=== PATIENT | female | born 1935 | race Caucasian/White ===

== ENCOUNTER 2022-08-23 14:27 | Inpatient (IN) ==
--- NOTE | 2022-08-23 14:55 | Internal Med History&Physical ---
HPI History of Present Illness Patient information: Note initiated : 08/23/22 at 2:54 pm Service Date, if different from initiated Date: [] Patient: Shira Gomez 86 y/o F admitted on for hip fx. Chief Complaint: [] History of present illness: Ms. Gomez is a 86 year old F Presents the ED with left hip pain and [place]. She has history of dementia chronic kidney disease UTIs hypertension diabetes hyperlipidemia. And tobacco abuse. Patient has several falls within the past couple weeks and has noticed increasing pain in the left hip and difficulty weightbearing and walking. Per the daughter she is just lost her balance both times. She is supposed to be ambulating with a walker and her daughter lives with her and is her primary records management manager. Patient worked up in the ED and found to have left hip fracture. Dr. Soliman contacted[facility] Review of Systems: Pertinent positives as above. Denies headache/fever/chills/nausea/vomiting/chest or abdominal pain/cough/dyspnea/diarrhea. Remaining 10 point review of system reviewed negative PHYSICAL EXAM General: Alert, Awake, No acute Distress Eyes/N/T: EOMI, no scleral icterus, PERRL, Head/Neck: neck supple, full ROM, normocephalic atraumatic CV: RRR, No murmurs, normal s1/s2 Pulm: Clear b/l, no wheezing/rhonchi/rales, no respiratory distress Abd: soft, nontender, +BS x4 Ext: no clubbing/cyanosis/edema, nontender Neuro: Alert, CN 2-12 grossly intact, no focal deficits, moves all extremities, , sensations intact b/l upper/lower Psychiatric: Skin: warm/dry, normal color A/P Narrative A/P Narrative: A: *Left hip fracture: *Generalized weakness/deconditioning: *Dementia: *CKD III: *HTN/HLD: *DM 2: *GERD: *Tobacco abuse: P: -Dr. Soliman for orthopedic repair -Pain control - -Monitor renal function and UOP/electrolytes and replace as needed -Continue home ACEI, statin -SSI -Home medication reconciliation -PT/OT -CM for placement -Smoking cessation counseling >3 minutes -ppx: SCD and postop per Ortho /home PPI Time Spent With Patient Time: Total time spent is greater than 50% in coordination of care (as documented) at patient's floor/unit and/or counseling patient: Initial: Total time with patient: 55 - 74 minutes
[2022-08-23] MEDS ORDERED: LABETALOL 5 MG/ML ML IV PRN (15:00)
[2022-08-23] MEDS ORDERED: SENNOSIDES 1 TABLET PO PRN (15:00)
[2022-08-23] MEDS ORDERED: POLYETHYLENE GLYCOL 3350 17 GM PACKET PO PRN (15:00)
[2022-08-23] MEDS ORDERED: HYDROcodone/APAP 5/325MG TABLET PO PRN (15:00)
[2022-08-23] MEDS ORDERED: POTASSIUM CHLORIDE 40 MEQ in DEXTROSE 5% IN WATER 500 ML IV PRN (15:00)
[2022-08-23] MEDS ORDERED: MAGNESIUM SULFATE 2 GM/50 ML BAG IV PRN (15:00)
[2022-08-23] MEDS ORDERED: morphine 4 MG/ML VIAL IV PRN (15:00)
[2022-08-23] MEDS ORDERED: ONDANSETRON 4 MG/2 ML VIAL IV PRN (15:00)
[2022-08-23] MEDS ORDERED: POTASSIUM CHLORIDE 20 MEQ TABLET PO PRN ×2 (15:00)
[2022-08-23] MEDS ORDERED: IPRATROPIUM/ALBUTEROL 3 ML AMPUL.NEB NEB PRN (15:00)
[2022-08-23] MEDS: DOCUSATE SODIUM 100 MG CAPSULE PO SCH (20:25)
[2022-08-23] MEDS: DULoxetine 30 MG CAPSULE PO SCH (21:09)
[2022-08-23] MEDS: ATORVASTATIN 10 MG TABLET PO SCH (21:09)
[2022-08-23] MEDS: 0.9 % SODIUM CHLORIDE 10 ML SYRINGE IV SCH (21:09)
[2022-08-24] MEDS: 0.9 % SODIUM CHLORIDE 10 ML SYRINGE IV SCH ×3 (04:02→22:14)
[2022-08-24 06:47] LABS: Basophils # (Auto) 0.08 K/mcL (0.00-0.30); Basophils % (Auto) 1.1 % (0.0-2.0); Eosinophils # (Auto) 0.22 K/mcL (0.00-0.70); Eosinophils % (Auto) 3.1 % (0.0-7.0); Hemoglobin 11.1 g/dL (11.2-15.7); Lymphocytes # (Auto) 2.08 K/mcL (1.50-4.80); Lymphocytes % (Auto) 29.1 % (15.5-49.0); Mean Cell Volume 93.3 fL (80.0-100.0); Mean Corpuscular HGB Conc 31.7 g/dL (31.0-36.0); Mean Platelet Volume 9.6 fL (8.8-12.5); Monocytes # (Auto) 0.64 K/mcL (0.10-0.90); Neutrophils % (Auto) 57.4 % (38.0-78.0); Platelet Count 241 K/mcL (140-440); RBC 3.75 M/mcL (3.59-5.38); Red Cell Distribution Width 13.1 % (11.5-14.5); WBC 7.1 K/mcL (4.5-11.0)
[2022-08-24 07:15] LABS: ALT/SGPT 9 U/L (<40); AST/SGOT 12 U/L (<32); Albumin/Globulin Ratio 1.4 (1.0-2.3); Alkaline Phosphatase 87 U/L (39-117); Bilirubin,Direct < 0.2 mg/dL (0-0.3); Bilirubin,Total 0.3 mg/dL (0.1-1.0); Blood Urea Nitrogen 24 mg/dL (8-23); Calcium 9.6 mg/dL (8.6-10.4); Carbon Dioxide 20 mmol/L (22-30); Chloride 100 mmol/L (96-108); Globulin 2.9 gm/dL (2.2-3.7); Glomerular Filtration Rate 46; Glucose 128 mg/dL (70-105); Lactate Dehydrogenase 158 U/L (135-225); Phosphorous 3.3 mg/dL (2.5-4.5); Triglycerides 296 mg/dL (<150); Uric Acid 4.9 mg/dL (2.5-8.0)
[2022-08-24 07:23] LABS: Prothrombin Time 13.9 sec (11.9-14.5)
[2022-08-24] MEDS ORDERED: 0.9 % SODIUM CHLORIDE 1,000 ML IV SCH (07:30)
[2022-08-24] MEDS ORDERED: PANTOPRAZOLE 40 MG VIAL IV SCH (07:30)
--- NOTE | 2022-08-24 07:30 | Internal Med Progress Note ---
SUBJECTIVE Subjective Patient information: Note initiated : 08/24/22 at 7:28 am Service Date, if different from initiated Date: [] Patient: Shira Gomez 86 y/o F admitted on 08/23/22 for hip fx. Chief Complaint: [] Interval history: History of present illness: Ms. Gomez is a 86 year old F Presents the ED with left hip pain and [place]. She has history of dementia chronic kidney disease UTIs hypertension diabetes hyperlipidemia. And tobacco abuse. Patient has several falls within the past couple weeks and has noticed increasing pain in the left hip and difficulty weightbearing and walking. Per the daughter she is just lost her balance both times. She is supposed to be ambulating with a walker and her daughter lives with her and is her primary flagger. Patient worked up in the ED and found to have left hip fracture. Dr. Soliman contacted. Patient transferred to [facility] for definitive treatment. 08/24 Patient slept okay. Pain relatively controlled with minimal movement. Volume depletion on labs. IV fluids while n.p.o. and awaiting surgery. Review of Systems: Pertinent positives as above. Denies headache/fever/chil ls/nausea/vomiting/chest or abdominal pain/cough/dyspnea/diarrhea. Remaining 10 point review of system reviewed negative PHYSICAL EXAM General: Alert, Awake, No acute Distress Eyes/N/T: EOMI, no scleral icterus, , Head/Neck: neck supple, full ROM, CV: RRR, No murmurs, Pulm: Clear b/l, no wheezing/rhonchi/rales, no respiratory distress Abd: soft, nontender, +BS x4 Ext: no clubbing/cyanosis/edema, nontender Neuro: Alert, no focal deficits, moves all extremities, , sensations intact b/l upper/lower Psychiatric: Skin: warm/dry, normal color Constitutional Vitals: Vital Signs Temp Pulse Resp BP Pulse Ox O2 Del Method 97.9 F 75 20 126/55 94 Room Air 08/24/22 04:00 08/24/22 04:00 08/24/22 04:00 08/24/22 04:00 08/24/22 04:00 08/24/22 04:00 Period Temp Pulse Resp BP Sys/Coto Pulse Ox O2 Del Method O2 Flow Rate Last 24 Hr 97.5 F-98.1 F 75-82 18-22 122-172/55-65 94-100 Room Air-Room Air Intake and Output 08/23/22 08/24/22 08/24/22 19:59 03:59 11:59 Intake Total 60 Output Total 950 Balance -890 Weight 61.915 kg 61.915 kg Intake & Output: Intake & Output 08/23/22 08/24/22 08/24/22 19:59 03:59 11:59 Intake Total 60 Output Total 950 Balance -890 Weight 61.915 kg 61.915 kg Intake: Oral 60 Output: Urine Catheter Amount 950 Other: Urine Appearance Clear Uretheral (Rubio) Clear Urine Color Pale Uretheral (Rubio) Pale Urine Odor Normal Uretheral (Rubio) Normal OBJ DATA Labs 08/24/22 05:41 08/24/22 05:41 Labs: Abnormal Lab Results 08/24/22 08/24/22 05:41 05:41 Hgb 11.1 L Carbon Dioxide 20 L BUN 24 H Glucose 128 H Triglycerides 296 H Meds: Medications Acetaminophen (Acetaminophen 325 Mg Tablet) 650 mg PO Q6HP PRN; Protocol PRN Reason: Per Pain Protocol/Fever > 101 Hydrocodone Bitart/Acetaminophen (Hydrocodone/Apap 5/325mg Tablet) 1 tab PO Q4HP PRN PRN Reason: PAIN LEVEL 3-6 Last Admin: 08/23/22 20:25 Dose: 1 tab Albuterol/Ipratropium (Ipratropium/Albuterol 3 Ml Ampul.Neb) 3 ml NEB Q4HP PRN PRN Reason: Shortness Of Breath Atorvastatin Calcium (Atorvastatin 10 Mg Tablet) 10 mg PO QHS [facility] Last Admin: 08/23/22 21:09 Dose: 10 mg Docusate Sodium (Docusate Sodium 100 Mg Capsule) 100 mg PO BID [facility] Last Admin: 08/23/22 20:25 Dose: 100 mg Duloxetine HCl (Duloxetine 30 Mg Capsule) 30 mg PO BID [facility] Last Admin: 08/23/22 21:09 Dose: 30 mg Potassium Chloride 40 meq/ (Dextrose) 520 mls @ 130 mls/hr IV UD PRN PRN Reason: Potassium < 3 Magnesium Sulfate (Magnesium Sulfate) 2 gm in 50 mls @ 50 mls/hr IV UD PRN PRN Reason: Magnesium </= 1.6 Labetalol HCl (Labetalol 5 Mg/Ml Ml) 0 mg IV Q2HP PRN PRN Reason: Hypertension Lisinopril (Lisinopril 2.5 Mg Tablet) 2.5 mg PO QAM FLASH Morphine Sulfate (Morphine 4 Mg/Ml Vial) 0 mg IV Q3HP PRN PRN Reason: Pain Omeprazole (Omeprazole 20 Mg Capsule) 20 mg PO ACB FLASH Ondansetron HCl (Ondansetron 4 Mg/2 Ml Vial) 4 mg IV Q4HP PRN PRN Reason: Nausea And Vomiting Polyethylene Glycol (Polyethylene Glycol 3350 17 Gm Packet) 17 gm PO DAILYP PRN PRN Reason: Constipation Potassium Chloride (Potassium Chloride 20 Meq Tablet) 40 meq PO UD PRN PRN Reason: Potssium is 3-3.5 Potassium Chloride (Potassium Chloride 20 Meq Tablet) 40 meq PO UD PRN PRN Reason: Potassium < 3 Scopolamine (Scopolamine 1 Patch Patch) 1 patch TOPICAL PREOP PRN PRN Reason: Nausea And Vomiting Stop: 08/24/22 23:59 Senna (Sennosides 1 Tablet) 2 tab PO DAILYP PRN PRN Reason: Constipation Sodium Chloride (0.9 % Sodium Chloride 10 Ml Syringe) 10 ml IV Q8 FLASH Last Admin: 08/24/22 04:02 Dose: 10 ml A/P Narrative A/P Narrative: A: *Left hip fracture: *Generalized weakness/deconditioning: *Volume depletion: *Dementia: *CKD III: *HTN/HLD: *DM 2: *GERD: *Tobacco abuse: P: -Dr. Soliman for orthopedic repair -Pain control -IVF -Monitor renal function and UOP/electrolytes and replace as needed -Continue home ACEI, statin -SSI -PT/OT -CM for placement -Smoking cessation counseling -ppx: SCD and postop per Ortho /home PPI Time Spent With Patient Time: Total time spent is greater than 50% in coordination of care (as documented) at patient's floor/unit and/or counseling patient: Subsequent: Total time with patient: 35 - 49 minutes
--- NOTE | 2022-08-24 08:02 | History and Physical Report ---
DATE OF ADMISSION: 08/23/2022 CHIEF COMPLAINT: Left hip pain. HISTORY OF PRESENT ILLNESS: The patient is an 86-year-old female who presented to the ED in [place], [place], status post a fall. She complained of left hip pain. Further workup did indicate a nondisplaced femoral neck fracture. REVIEW OF SYSTEMS: Positive for left hip pain and swelling, and previous falls. PAST MEDICAL HISTORY: Does include dementia, diabetes, chronic kidney disease stage III, hypertension, hyperlipidemia, GERD. PAST SOCIAL HISTORY: The patient is a current tobacco user. PAST SURGICAL HISTORY: Unfortunately, not obtained. MEDICATIONS: Atorvastatin 10 mg p.o. at bedtime. Lisinopril 2.5 mg p.o. q.a.m. Latanoprost 0.005% drops. Omeprazole 20 mg p.o. q.a.m. Metformin 500 mg tablet b.i.d. Duloxetine 30 mg p.o. b.i.d. Timolol 22.3-6 0.8 mg/mL drops. Benzonatate 100 mg capsule t.i.d. VITAL SIGNS: Blood pressure 126/55, respiratory rate 20, pulse rate 75, temperature 97.9 and pulse ox 94 on room air. PHYSICAL EXAMINATION: GENERAL: The patient is awake and oriented. She is in no acute distress. HEART: Regular. LUNGS: Some mild wheezing noted. EXTREMITIES: Left lower extremity: The patient is unable to actively flex the hip as well as flex and extend the knee due to pain. She is able to plantarflex and dorsiflex the ankle. She has palpable pedal pulses. Sensation is intact to light touch. She has good capillary refill. She does have tenderness to palpation over the left greater trochanter. Right lower extremity: She has full active and passive range of motion with no pain. She has active hip flexion and knee flexion and extension and ankle plantar flexion, dorsiflexion. She has palpable pedal pulse. Sensation is grossly intact to light touch. She has good capillary refill and no tenderness to palpation to the right lower extremity. RADIOLOGIC STUDIES: X-rays do show a nondisplaced left femoral neck fracture. ASSESSMENT: Nondisplaced left femoral neck fracture. PLAN: The patient has elected to proceed with a left hip open treatment and internal fixation to be performed by Dr. Soliman consisting of 3 percutaneous screws. I had a long discussion with the patient regarding the procedure and the postoperative protocol. I also met with the patient's daughter and son-in-law. I explained the procedure; risk of procedure does include bleeding, infection, injury to nerves, blood vessels, other structures in the area, and anesthetic risk. The patient and family have agreed and are willing to proceed. COLLIN:kh Job ID: [id number] Doc ID: [id number] Francois Zafar PA-C
--- NOTE | 2022-08-24 08:10 | EKG ---
[facility] Test Date: 2022-08-23 Pat Name: Shira Gomez Department: RT Room: Gender: Female Graduate Teaching Assistant: : 1935 Requested By: Igor Diamond Order Number: [id number] Reading MD: Clifford Rios M.D. Measurements Intervals [place] Rate: 76 P: 53 WA: 160 QRS: -13 QRSD: 62 T: 55 QT: 359 QTc: 404 Interpretive Statements Sinus rhythm Low voltage, precordial leads Electronically Signed On 08-24-2022 8:09:43 PDT by Clifford Rios M.D. /store/M0/[id number]/[id number].pdf
[2022-08-24] MEDS: DULoxetine 30 MG CAPSULE PO SCH ×2 (10:02→22:13)
[2022-08-24] MEDS: DOCUSATE SODIUM 100 MG CAPSULE PO SCH ×3 (10:02→22:13)
[2022-08-24] MEDS: OMEPRAZOLE 20 MG CAPSULE PO SCH (10:02)
[2022-08-24] MEDS: LISINOPRIL 2.5 MG TABLET PO SCH (10:02)
[2022-08-24] MEDS: ACETAMINOPHEN 325 MG TABLET PO PRN (10:15)
[2022-08-24] MEDS ORDERED: SCOPOLAMINE 1 PATCH PATCH TOPICAL PRN (14:00)
[2022-08-24] MEDS: ceFAZolin 2 GM in DEXTROSE 5% IN WATER 50 ML IV SCH ×2 (18:40→18:45)
[2022-08-24] MEDS ORDERED: ONDANSETRON 4 MG/2 ML VIAL ONE (18:45)
[2022-08-24] MEDS ORDERED: TRANEXAMIC ACID 1,000 MG/10 ML VIAL ONE (18:45)
[2022-08-24] MEDS ORDERED: fentaNYL 100 MCG/2 ML VIAL IV ONE ×2 (18:45→20:13)
[2022-08-24] MEDS ORDERED: PROPOFOL 200 MG/20 ML VIAL IV ONE (18:45)
[2022-08-24] MEDS ORDERED: PHENYLephrine 1 MG/10 ML SYRINGE (ANEST) ONE (18:45)
[2022-08-24] MEDS ORDERED: NALOXONE HCL 0.4 MG/ML VIAL IV PRN (19:24)
[2022-08-24] MEDS ORDERED: ACETAMINOPHEN 1,000 MG/100 ML BAG IV ONE (19:24)
[2022-08-24] MEDS ORDERED: IPRATROPIUM/ALBUTEROL 3 ML AMPUL.NEB NEB PRN (19:24)
[2022-08-24] MEDS ORDERED: fentaNYL 100 MCG/2 ML VIAL IV PRN (19:24)
[2022-08-24] MEDS ORDERED: PROMETHAZINE 25 MG/ML VIAL IV PRN (19:24)
--- NOTE | 2022-08-24 19:43 | Brief Operative Note ---
Brief Operative Note Date of procedure: 08/24/22 Pre-op diagnosis: left hip femoral neck fracture Post-op diagnosis: same Procedure: closed reduction perc screw fixation of left hip Grafts/Implants: Yes Anesthesia: GETA Findings: femoral neck fracture Complications: none Surgeon: Clifford Soliman Estimated blood loss (cc): 10 Specimens Removed/Pathology: none sent Condition: stable Disposition: PACU
--- NOTE | 2022-08-24 19:44 | Discharge Plan ---
DC Instructions-General Patient Instructions Dressing Care: May shower in 2 days Discharge Plan Patient/Caregiver Discharge Instructions Activity: as instructed Diet: Regular Diet Prescriptions: No Action metformin 500 mg Tablet 500 mg PO BID atorvastatin 10 mg PO QHS lisinopril 2.5 mg PO QAM duloxetine 30 mg PO BID latanoprost 0.005 % drops 1 drp OPHTHALMIC (EYE) QHS Patient Comments: [NO ORIGINAL SIG] dorzolamide-timolol 22.3-6.8 mg/mL drops 1 drp BID Patient Comments: [NO ORIGINAL SIG] benzonatate 100 mg capsule 100 mg PO TID omeprazole 20 mg PO QAM Follow Up Plan Follow up with: Clifford Soliman MD [Physician] - Patient Disposition: Xfer SNF Rehab Potential: Good I certify that the patient requires SNF services: Yes Overall status at discharge: patient is progressing back to baseline Discharge Orders: Discharge Order (Routine); Ordered 08/24/22 Ordered By: Clifford Soliman Discharge Comment: cc: hip fracture s/p perc screw fixation
[2022-08-24] MEDS ORDERED: BENZOCAINE/MENTHOL 1 LOZENGE PO PRN (19:45)
[2022-08-24] MEDS ORDERED: BISACODYL 10 MG SUPP.RECT PR PRN (19:45)
[2022-08-24] MEDS ORDERED: ONDANSETRON 4 MG ODT TABLET SL PRN (19:45)
[2022-08-24] MEDS ORDERED: FLEETS ADULT ENEMA PR PRN (19:45)
[2022-08-24] MEDS ORDERED: morphine 4 MG/ML VIAL IV PRN (19:45)
[2022-08-24] MEDS: LATANOPROST OPHTH DROPS 2.5ML BOTTLE OU SCH (20:54)
[2022-08-24] MEDS: ASPIRIN 81 MG TAB.CHEW PO SCH (22:13)
[2022-08-24] MEDS: SENNOSIDES 1 TABLET PO SCH (22:13)
[2022-08-24] MEDS: ATORVASTATIN 10 MG TABLET PO SCH (22:13)
--- NOTE | 2022-08-25 01:30 | XRay Report ---
CLINICAL INFORMATION: LEFT HIP PERC PINNING COMPARISON: Preoperative films 08/23/2022 FINDINGS: Subcapital fracture of the left hip has been reduced to anatomic alignment and now transfixed by three pins. Left hip joint is normal with and alignment without arthritic change. Fluoroscopy time 0.7 minutes IMPRESSION: ORIF subcapital fracture left hip with anatomic alignment Interpreted and Authenticated by: Clifford Sarmiento 08/25/22
[2022-08-25] MEDS: 0.9 % SODIUM CHLORIDE 10 ML SYRINGE IV SCH ×3 (05:11→21:16)
[2022-08-25] MEDS: HYDROcodone/APAP 5/325MG TABLET PO PRN ×3 (05:14→21:29)
[2022-08-25] MEDS: MAGNESIUM HYDROXIDE 30 ML ORAL.SUSP PO PRN (05:15)
[2022-08-25 06:35] LABS: Hemoglobin 10.9 g/dL (11.2-15.7)
--- NOTE | 2022-08-25 06:37 | Orthopedic Progress Note ---
SUBJECTIVE Subjective Patient information: Note initiated : 08/25/22 at 6:28 am Service Date, if different from initiated Date: [] Patient: Shira Gomez 86 y/o F admitted on 08/23/22 for hip fx. Chief Complaint: [s/p left non-displaced fem neck fracture. POD 1 L hip pin] Principal diagnosis: s/p left non-displaced fem neck fracture. POD 1 L hip pin Pertinent ROS: 10 points reviewed and are negative within the limitations of patient cooperation Constitutional Vitals: Vital Signs Temp Pulse Resp BP Pulse Ox O2 Del Method O2 Flow Rate 98.4 F 85 18 148/70 90 Room Air 2 08/25/22 03:19 08/25/22 03:19 08/25/22 03:19 08/25/22 03:19 08/25/22 03:19 08/25/22 03:19 08/24/22 21:00 Period Temp Pulse Resp BP Sys/Coto Pulse Ox O2 Del Method O2 Flow Rate Last 24 Hr 97.5 F-98.4 F 67-85 13-22 88-155/35-83 90-100 Nasal Cannula- Room Air 0-6 Intake and Output 08/24/22 08/25/22 08/25/22 19:59 03:59 11:59 Intake Total 50 860 Output Total 700 1250 Balance -650 -390 Weight 137 lb Intake & Output: Intake & Output 08/24/22 08/25/22 08/25/22 19:59 03:59 11:59 Intake Total 50 860 Output Total 700 1250 Balance -650 -390 Weight 137 lb Intake: IV 50 100 Ancef 2 gm In Dextrose 5% in 50 Water 50 ml @ 100 mls/hr IV PREOP [facility] Rx#:[id number] Oral 60 IV - Manual Only 700 Output: Urine Catheter Amount 700 1250 Estimated Blood Loss 0 Other: Urine Appearance Clear Clear Uretheral (Rubio) Clear Clear Urine Color Bright Yellow Pale Uretheral (Rubio) Yellow Urine Odor Normal OBJ DATA Labs 08/24/22 05:41 08/24/22 05:41 Labs: Abnormal Lab Results 08/24/22 08/24/22 05:41 05:41 Hgb 11.1 L Carbon Dioxide 20 L BUN 24 H Glucose 128 H Triglycerides 296 H Meds: Medications Acetaminophen (Acetaminophen 325 Mg Tablet) 650 mg PO Q6HP PRN; Protocol PRN Reason: Per Pain Protocol/Fever > 101 Last Admin: 08/24/22 10:15 Dose: 650 mg Hydrocodone Bitart/Acetaminophen (Hydrocodone/Apap 5/325mg Tablet) 0 tab PO Q4HP PRN; Protocol PRN Reason: Per Pain Protocol Last Admin: 08/25/22 05:14 Dose: 2 tab Albuterol/Ipratropium (Ipratropium/Albuterol 3 Ml Ampul.Neb) 3 ml NEB Q4HP PRN PRN Reason: Shortness Of Breath Aspirin (Aspirin 81 Mg Tab.Chew) 81 mg PO BID [facility] Last Admin: 08/24/22 22:13 Dose: 81 mg Atorvastatin Calcium (Atorvastatin 10 Mg Tablet) 10 mg PO QHS [facility] Last Admin: 08/24/22 22:13 Dose: 10 mg Bisacodyl (Bisacodyl 10 Mg Supp.Rect) 10 mg [place] Q2-3DAYS PRN PRN Reason: Constipation Docusate Sodium (Docusate Sodium 100 Mg Capsule) 100 mg PO BID [facility] Last Admin: 08/24/22 22:13 Dose: 100 mg Duloxetine HCl (Duloxetine 30 Mg Capsule) 30 mg PO BID [facility] Last Admin: 08/24/22 22:13 Dose: 30 mg Potassium Chloride 40 meq/ (Dextrose) 520 mls @ 130 mls/hr IV UD PRN PRN Reason: Potassium < 3 Magnesium Sulfate (Magnesium Sulfate) 2 gm in 50 mls @ 50 mls/hr IV UD PRN PRN Reason: Magnesium </= 1.6 Labetalol HCl (Labetalol 5 Mg/Ml Ml) 0 mg IV Q2HP PRN PRN Reason: Hypertension Latanoprost (Latanoprost Ophth Drops 2.5ml Bottle) 1 gtt OU QHS [facility] Last Admin: 08/24/22 20:54 Dose: Not Given Lisinopril (Lisinopril 2.5 Mg Tablet) 2.5 mg PO QAM [facility] Last Admin: 08/24/22 10:02 Dose: Not Given Magnesium Hydroxide (Magnesium Hydroxide 30 Ml Oral.Susp) 30 ml PO BIDP PRN PRN Reason: Constipation Last Admin: 08/25/22 05:15 Dose: 30 ml Morphine Sulfate (Morphine 4 Mg/Ml Vial) 0 mg IV Q1HP PRN; Protocol PRN Reason: Per Pain Protocol Last Admin: 08/24/22 22:14 Dose: 2 mg Omeprazole (Omeprazole 20 Mg Capsule) 20 mg PO ACB [facility] Last Admin: 08/24/22 10:02 Dose: Not Given Ondansetron HCl (Ondansetron 4 Mg/2 Ml Vial) 4 mg IV Q4HP PRN PRN Reason: Nausea And Vomiting Ondansetron HCl (Ondansetron 4 Mg Odt Tablet) 4 mg SL Q4HP PRN; Protocol PRN Reason: Nausea And Vomiting Polyethylene Glycol (Polyethylene Glycol 3350 17 Gm Packet) 17 gm PO DAILYP PRN PRN Reason: Constipation Potassium Chloride (Potassium Chloride 20 Meq Tablet) 40 meq PO UD PRN PRN Reason: Potssium is 3-3.5 Potassium Chloride (Potassium Chloride 20 Meq Tablet) 40 meq PO UD PRN PRN Reason: Potassium < 3 Senna (Sennosides 1 Tablet) 2 tab PO HS [facility] Last Admin: 08/24/22 22:13 Dose: 2 tab Sodium Biphosphate/Sodium Phosphate (Fleets Adult Enema) 1 dose [place] Q3-4DAYS PRN PRN Reason: Constipation Sodium Chloride (0.9 % Sodium Chloride 10 Ml Syringe) 10 ml IV Q8 [facility] Last Admin: 08/25/22 05:11 Dose: 10 ml Throat Lozenges (Benzocaine/Menthol 1 Lozenge) 1 lozenge PO PRN PRN PRN Reason: Sore Throat A/P Narrative Plan of Treatment: Patient seen and examined this am. resting comfortably but arousable. somewhat somnolent suspect secondary to narcotic/ anesthesia. Patient seems to be returning to her baseline dementia. Has no complaints of pain at this time. Dressing at [facility] peeled back and disheveled, no drainage evident. Will order change today. Both LE are warm, well perfused and neuro intact. She is able to wiggle toes and plantar flex foot but could not dorsiflex foot on command. She may be confused delirious. Plan is for expected discharge in 1-2 days likely to SNF with follow up at [facility] in 10-14 days s/p discharge. 50% WB with walker/ PT for asssist pain control PT/OT DVT proph Time Spent With Patient Time: Total time spent is greater than 50% in coordination of care (as documented) at patient's floor/unit and/or counseling patient:
[2022-08-25 07:20] LABS: Blood Urea Nitrogen 17 mg/dL (8-23); Calcium 9.5 mg/dL (8.6-10.4); Carbon Dioxide 24 mmol/L (22-30); Chloride 100 mmol/L (96-108); Glomerular Filtration Rate 51; Glucose 136 mg/dL (70-105)
--- NOTE | 2022-08-25 07:33 | Internal Med Progress Note ---
SUBJECTIVE Subjective Patient information: Note initiated : 08/25/22 at 7:32 am Service Date, if different from initiated Date: [] Patient: Shira Gomez 86 y/o F admitted on 08/23/22 for hip fx. Chief Complaint: [] Principal diagnosis: s/p left non-displaced fem neck fracture. POD 1 L hip pin Interval history: History of present illness: Ms. Gomez is a 86 year old F Presents the ED with left hip pain and [place]. She has history of dementia chronic kidney disease UTIs hypertension diabetes hyperlipidemia. And tobacco abuse. Patient has several falls within the past couple weeks and has noticed increasing pain in the left hip and difficulty weightbearing and walking. Per the daughter she is just lost her balance both times. She is supposed to be ambulating with a walker and her daughter lives with her and is her primary cellar hand. Patient worked up in the ED and found to have left hip fracture. Dr. Soliman contacted. [facility]. 08/24 Patient slept okay. Pain relatively controlled with minimal movement. Volume depletion on labs. IV fluids while n.p.o. and awaiting surgery. 08/25 Status post ORIF yesterday. Patient resting comfortably in bed. Following depletion improving. Patient to start work on PT OT. Patient will need SNF placement. Review of Systems: Pertinent positives as above. Denies headache/fever/chills/nausea/vomiting/chest or abdominal pain/cough/dyspnea/diarrhea. Remaining 10 point review of system reviewed negative PHYSICAL EXAM General: Alert, Awake, No acute Distress Eyes/N/T: EOMI, no scleral icterus, , Head/Neck: neck supple, full ROM, CV: RRR, No murmurs, Pulm: Clear b/l, no wheezing/rhonchi/rales, no respiratory distress Abd: soft, nontender, +BS x4 Ext: no clubbing/cyanosis/edema, nontender Neuro: Alert, no focal deficits, moves all extremities, , sensations intact b/l upper/lower Psychiatric: Skin: warm/dry, normal color Constitutional Vitals: Vital Signs Temp Pulse Resp BP Pulse Ox O2 Del Method O2 Flow Rate 98.4 F 85 18 148/70 90 Room Air 2 08/25/22 03:19 08/25/22 03:19 08/25/22 03:19 08/25/22 03:19 08/25/22 03:19 08/25/22 03:19 08/24/22 21:00 Period Temp Pulse Resp BP Sys/[place] Pulse Ox O2 Del Method O2 Flow Rate Last 24 Hr 97.5 F-98.4 F 67-85 13- 88-155/35-83 90-100 Nasal Cannula- Room Air 0-6 Intake and Output 08/24/22 08/25/22 08/25/22 19:59 03:59 11:59 Intake Total 50 860 Output Total 700 1250 Balance -650 -390 Weight 62.142 kg Intake & Output: Intake & Output 08/24/22 08/25/22 08/25/22 19:59 03:59 11:59 Intake Total 50 860 Output Total 700 1250 Balance -650 -390 Weight 62.142 kg Intake: IV 50 100 Ancef 2 gm In Dextrose 5% in 50 Water 50 ml @ 100 mls/hr IV PREOP FLASH Rx#:[id number] Oral 60 IV - Manual Only 700 Output: Urine Catheter Amount 700 1250 Estimated Blood Loss 0 Other: Urine Appearance Clear Clear Uretheral (Rubio) Clear Clear Urine Color Bright Yellow Pale Uretheral (Rubio) Yellow Urine Odor Normal OBJ DATA Labs 08/25/22 05:52 08/25/22 05:52 Labs: Abnormal Lab Results 08/25/22 08/25/22 08/24/22 05:52 05:52 05:41 Hgb 10.9 L 11.1 L Hct 34.0 L Carbon Dioxide BUN Glucose 136 H Triglycerides 08/24/22 05:41 Hgb Hct Carbon Dioxide 20 L BUN 24 H Glucose 128 H Triglycerides 296 H Meds: Medications Acetaminophen (Acetaminophen 325 Mg Tablet) 650 mg PO Q6HP PRN; Protocol PRN Reason: Per Pain Protocol/Fever > 101 Last Admin: 08/24/22 10:15 Dose: 650 mg Hydrocodone Bitart/Acetaminophen (Hydrocodone/Apap 5/325mg Tablet) 0 tab PO Q4 HP PRN; Protocol PRN Reason: Per Pain Protocol Last Admin: 08/25/22 05:14 Dose: 2 tab Albuterol/Ipratropium (Ipratropium/Albuterol 3 Ml Ampul.Neb) 3 ml NEB Q4HP PRN PRN Reason: Shortness Of Breath Aspirin (Aspirin 81 Mg Tab.Chew) 81 mg PO BID [facility] Last Admin: 08/24/22 22:13 Dose: 81 mg Atorvastatin Calcium (Atorvastatin 10 Mg Tablet) 10 mg PO QHS [facility] Last Admin: 08/24/22 22:13 Dose: 10 mg Bisacodyl (Bisacodyl 10 Mg Supp.Rect) 10 mg FL Q2-3DAYS PRN PRN Reason: Constipation Docusate Sodium (Docusate Sodium 100 Mg Capsule) 100 mg PO BID [facility] Last Admin: 08/24/22 22:13 Dose: 100 mg Duloxetine HCl (Duloxetine 30 Mg Capsule) 30 mg PO BID [facility] Last Admin: 08/24/22 22:13 Dose: 30 mg Potassium Chloride 40 meq/ (Dextrose) 520 mls @ 130 mls/hr IV UD PRN PRN Reason: Potassium < 3 Magnesium Sulfate (Magnesium Sulfate) 2 gm in 50 mls @ 50 mls/hr IV UD PRN PRN Reason: Magnesium </= 1.6 Labetalol HCl (Labetalol 5 Mg/Ml Ml) 0 mg IV Q2HP PRN PRN Reason: Hypertension Latanoprost (Latanoprost Ophth Drops 2.5ml Bottle) 1 gtt OU QHS [facility] Last Admin: 08/24/22 20:54 Dose: Not Given Lisinopril (Lisinopril 2.5 Mg Tablet) 2.5 mg PO QAM [facility] Last Admin: 08/24/22 10:02 Dose: Not Given Magnesium Hydroxide (Magnesium Hydroxide 30 Ml Oral.Susp) 30 ml PO BIDP PRN PRN Reason: Constipation Last Admin: 08/25/22 05:15 Dose: 30 ml Morphine Sulfate (Morphine 4 Mg/Ml Vial) 0 mg IV Q1HP PRN; Protocol PRN Reason: Per Pain Protocol Last Admin: 08/24/22 22:14 Dose: 2 mg Omeprazole (Omeprazole 20 Mg Capsule) 20 mg PO ACB [facility] Last Admin: 08/24/22 10:02 Dose: Not Given Ondansetron HCl (Ondansetron 4 Mg/2 Ml Vial) 4 mg IV Q4HP PRN PRN Reason: Nausea And Vomiting Ondansetron HCl (Ondansetron 4 Mg Odt Tablet) 4 mg SL Q4HP PRN; Protocol PRN Reason: Nausea And Vomiting Polyethylene Glycol (Polyethylene Glycol 3350 17 Gm Packet) 17 gm PO DAILYP PRN PRN Reason: Constipation Potassium Chloride (Potassium Chloride 20 Meq Tablet) 40 meq PO UD PRN PRN Reason: Potssium is 3-3.5 Potassium Chloride (Potassium Chloride 20 Meq Tablet) 40 meq PO UD PRN PRN Reason: Potassium < 3 Senna (Sennosides 1 Tablet) 2 tab PO HS [facility] Last Admin: 08/24/22 22:13 Dose: 2 tab Sodium Biphosphate/Sodium Phosphate (Fleets Adult Enema) 1 dose FL Q3-4DAYS PRN PRN Reason: Constipation Sodium Chloride (0.9 % Sodium Chloride 10 Ml Syringe) 10 ml IV Q8 [facility] Last Admin: 08/25/22 05:11 Dose: 10 ml Throat Lozenges (Benzocaine/Menthol 1 Lozenge) 1 lozenge PO PRN PRN PRN Reason: Sore Throat A/P Narrative A/P Narrative: A: *Left hip fracture: s/p ORIF (08/24) *Generalized weakness/deconditioning: *Volume depletion: improving *Dementia: *CKD III: *HTN/HLD: *DM 2: *GERD: *Tobacco abuse: P: -Dr. Soliman for orthopedic repair -Pain control -IVF'd dc -Monitor renal function and UOP/electrolytes and replace as needed -Continue home ACEI, statin -SSI -PT/OT -CM for placement -Smoking cessation counseling -ppx: SCD and postop per Ortho /home PPI Plan of Treatment: Patient seen and examined this am. resting comfortably but arousable. somewhat somnolent suspect secondary to narcotic/ anesthesia. Patient seems to be returning to her baseline dementia. Has no complaints of pain at this time. Dressing at E peeled back and disheveled, no drainage evident. Will order change today. Both LE are warm, well perfused and neuro intact. She is able to wiggle toes and plantar flex foot but could not dorsiflex foot on command. She may be confused delirious. Plan is for expected discharge in 1-2 days likely to SNF with follow up at [facility] in 10-14 days s/p discharge. 50% WB with walker/ PT for asssist pain control PT/OT DVT proph Time Spent With Patient Time: Total time spent is greater than 50% in coordination of care (as documented) at patient's floor/unit and/or counseling patient: Subsequent: Total time with patient: 35 - 49 minutes
--- NOTE | 2022-08-25 08:04 | Operative Note ---
DATE OF OPERATION: 08/24/2022 DATE OF PROCEDURE: 08/24/2022 PREOPERATIVE DIAGNOSIS: Left valgus-impacted femoral neck fracture. POSTOPERATIVE DIAGNOSES: Left valgus-impacted femoral neck fracture. PROCEDURE PERFORMED: Closed reduction and percutaneous screw fixation of left femoral neck fracture. SURGEON: Bib Soliman M.D. LINING LAYER SURGEON: None. ANESTHESIA: General. INTRAOPERATIVE FINDINGS: A valgus-impacted femoral neck fracture. IMPLANTS: Synthes 7.3 mm cannulated short threaded screws. INDICATIONS: The patient is an 86-year-old female. She fell on her left hip, sustained a valgus-impacted femoral neck fracture. She walked on it for about a day. X-rays in the ER have demonstrated a stable fracture pattern. We talked about different options and elected to proceed with the above surgical intervention. The risks and benefits were discussed with the patient in detail including, but not limited to, the risks of anesthesia, problems with the heart or lungs related to anesthesia, infection, compromise or injury to the nerves and blood vessels, deep venous thrombosis, pulmonary embolism, pneumonia, continued pain after surgery, worsening pain or symptoms after surgery, swelling, loss of motion, need for repeat surgery, hardware failure, re-tear or failure of repair site, malunion, nonunion, and hardware pain requiring future removal. DESCRIPTION OF PROCEDURE: The patient was seen preoperatively where site was signed and questions were answered. She was then transferred to the operating given 2 grams of Ancef and general anesthesia was administered without complication. She was placed on the hip fracture table with all prominences well padded. She was prepped and draped in the usual fashion around the hip. Radiographs were taken and confirmed that the fracture was still valgus-impacted and reduced well. I then percutaneously placed 3 pins, 1 in the center and distal portion of the neck above the calcar the other 2 were anterior and posterior in the superior portion of the neck, creating an inverted triangle. I confirmed this with the C-arm and then measured and found that the top 2 screws to be 70 mm and the more distal screw to be 80 mm. I overreamed and then 3 screws were placed with good fixation. Radiographs again were confirmed to confirm that the fracture was anatomically reduced and the hardware was in good position. We then thoroughly irrigated the wound, closed the portal sites with james. The wound was dressed with Xeroform, 4 x 4's, ABD and Medipore tape. She was then extubated, transferred to the stretcher and taken to PACU in stable condition. SPECIMENS: None. COMPLICATIONS: None. DRAINS: None. DISPOSITION: PACU. COOPER:cristino Job ID: [id number] Doc ID: [id number] Bib Soliman MD
[2022-08-25] MEDS: POLYETHYLENE GLYCOL 3350 17 GM PACKET PO PRN (10:52)
[2022-08-25] MEDS: LISINOPRIL 2.5 MG TABLET PO SCH (10:54)
[2022-08-25] MEDS: ASPIRIN 81 MG TAB.CHEW PO SCH ×2 (10:54→21:17)
[2022-08-25] MEDS: DULoxetine 30 MG CAPSULE PO SCH ×2 (10:54→21:17)
[2022-08-25] MEDS: OMEPRAZOLE 20 MG CAPSULE PO SCH (10:54)
[2022-08-25] MEDS: DOCUSATE SODIUM 100 MG CAPSULE PO SCH ×2 (10:54→21:16)
[2022-08-25] MEDS: ACETAMINOPHEN 325 MG TABLET PO PRN (10:55)
--- NOTE | 2022-08-25 10:57 | Discharge Summary ---
Discharge Provider Provider IMPORTANT FOLLOW-UP INFORMATION FOR PCP: Patient information: Note initiated : 08/25/22 at 10:56 am Service Date, if different from initiated Date: [] Patient: Shira Gomez 86 y/o F admitted on 08/23/22 for hip fx. Chief Complaint: [] Date of admission: 08/23/22 16:20 Discharge date: 08/26/22 COURSE Hospital Course Hospital course: History of present illness: Ms. Gomez is a 86 year old F Presents the ED with left hip pain and [place]. She has history of demen tia chronic kidney disease UTIs hypertension diabetes hyperlipidemia. And tobacco abuse. Patient has several falls within the past couple weeks and has noticed increasing pain in the left hip and difficulty weightbearing and walking. Per the daughter she is just lost her balance both times. She is supposed to be ambulating with a walker and her daughter lives with her and is her primary photoengraving etcher. Patient worked up in the ED and found to have left hip fracture. Dr. Soliman contacted. Patient transferred to [facility] for definitive treatment. 08/24 Patient slept okay. Pain relatively controlled with minimal movement. Volume depletion on labs. IV fluids while n.p.o. and awaiting surgery. 08/25 Status post ORIF yesterday. Patient resting comfortably in bed. Following depletion improving. Patient to start work on PT OT. Patient will need SNF placement. 08/26 No overnight event or new complaints. Patient doing well. Stable for discharge to rehab. A: *Left hip fracture: s/p ORIF (08/24) *Generalized weakness/deconditioning: *Volume depletion: improving *Dementia: *CKD III: *HTN/HLD: *DM 2: *GERD: *Tobacco abuse: P: -Dr. Soliman f/u Discharge diagnosis: Left hip fracture generalized weakness volume depletion Secondary discharge diagnosis: Dementia CKD hypertension diabetes GERD tobacco abuse Time Spent with Patient Time attestation: Total time spent providing and/or coordinating discharge services: Time spent: Greater than 30 minutes EXAM Constitutional Vitals: Temp Pulse Resp BP Pulse Ox O2 Del Method O2 Flow Rate 97.4 F 80 18 120/55 94 Room Air 2 08/25/22 08:00 08/25/22 08:00 08/25/22 08:00 08/25/22 08:00 08/25/22 08:00 08/25/22 08:00 08/24/22 21:00 Discharge Data Data Completed and Pending Labs on day of discharge: Labs from last 24 hours 08/25/22 08/25/22 05:52 05:52 Hgb 10.9 L Hct 34.0 L Sodium 134 Potassium 4.4 Chloride 100 Carbon Dioxide 24 Anion Gap 10.0 BUN 17 Creatinine 1.0 GFR Calculation 51 Glucose 136 H Calcium 9.5 Discharge Plan Patient/Caregiver Discharge Instructions Activity: as instructed Diet: Regular Diet Activity Restrictions/Additional Instructions: Follow-up with PCP in 3 to 7 days. Prescriptions: New aspirin [Louis Low Dose Aspirin] 81 mg tablet,delayed release (DR/EC) 81 mg PO BID Qty: 30 0RF oxycodone-acetaminophen 5-325 mg tablet 1 - 2 tab PO Q4H PRN (Reason: Pain) Qty: 40 0RF Continued metformin 500 mg Tablet 500 mg PO BID atorvastatin 10 mg PO QHS lisinopril 2.5 mg PO QAM duloxetine 30 mg PO BID latanoprost 0.005 % drops 1 drp OPHTHALMIC (EYE) QHS Patient Comments: [NO ORIGINAL SIG] dorzolamide-timolol 22.3-6.8 mg/mL drops 1 drp BID Patient Comments: [NO ORIGINAL SIG] benzonatate 100 mg capsule 100 mg PO TID omeprazole 20 mg PO QAM Other Ambulatory Orders: OT Discharge Order (Routine) Location: None Selected Ordered By: Clifford Soliman Physical Therapy DC - General (Routine) Location: None Selected Ordered By: Clifford Soliman Follow Up Plan Follow up with: Clifford Soliman MD [Physician] - Patient Disposition: Xfer SNF Plan of Treatment: Patient seen and examined this am. resting comfortably but arousable. somewhat somnolent suspect secondary to narcotic/ anesthesia. Patient seems to be returning to her baseline dementia. Has no complaints of pain at this time. Dressing at E peeled back and disheveled, no drainage evident. Will order change today. Both LE are warm, well perfused and neuro intact. She is able to wiggle toes and plantar flex foot but could not dorsiflex foot on command. She may be confused delirious. Plan is for expected discharge in 1-2 days likely to SNF with follow up at [facility] in 10-14 days s/p discharge. 50% WB with walker/ PT for asssist pain control PT/OT DVT proph Rehab Potential: Good I certify that the patient requires SNF services: Yes Overall status at discharge: patient is progressing back to baseline Discharge Orders: Discharge Order (Routine); Ordered 08/26/22 Ordered By: Igor Diamond Discharge Comment: cc: hip fracture s/p perc screw fixation
[2022-08-25] MEDS: ATORVASTATIN 10 MG TABLET PO SCH (21:17)
[2022-08-25] MEDS: LATANOPROST OPHTH DROPS 2.5ML BOTTLE OU SCH (21:17)
[2022-08-25] MEDS: SENNOSIDES 1 TABLET PO SCH (21:35)
[2022-08-26] MEDS: 0.9 % SODIUM CHLORIDE 10 ML SYRINGE IV SCH (04:04)
[2022-08-26] MEDS: MAGNESIUM HYDROXIDE 30 ML ORAL.SUSP PO PRN (05:27)
[2022-08-26] MEDS: DULoxetine 30 MG CAPSULE PO SCH (08:07)
[2022-08-26] MEDS: ASPIRIN 81 MG TAB.CHEW PO SCH (08:08)
[2022-08-26] MEDS: POLYETHYLENE GLYCOL 3350 17 GM PACKET PO PRN (08:08)
[2022-08-26] MEDS: DOCUSATE SODIUM 100 MG CAPSULE PO SCH (08:08)
[2022-08-26] MEDS: LISINOPRIL 2.5 MG TABLET PO SCH (08:08)
[2022-08-26] MEDS ORDERED: PROMETHAZINE 25 MG/ML VIAL IV PRN (10:40)
[2022-08-26] MEDS: OMEPRAZOLE 20 MG CAPSULE PO SCH (10:54)
[2022-08-26] MEDS: HYDROcodone/APAP 5/325MG TABLET PO PRN (11:04)
== END 2022-08-26 11:35 | DRG 482 ==
LOC: SUATTDRO 16:20 → MEDSUR 16:20
PROVIDERS: ADMIT Internal Medicine; ATTEND Orthopaedic Surgery Sports Medicine